=== PATIENT | female | born 1940 | race Caucasian/White ===

== ENCOUNTER 2022-11-02 11:50 | Inpatient (IN) | payer OTHER, MEDICAID ==
[2022-11-02 12:53] LABS: Bilirubin Neg (Negative); Blood, Urine Negative (Negative); Clarity Clear (Clear); Glucose, Urine (Dipstick) Normal (Negative); Ketone, Urine 15 mg/dL (Negative); Leukocyte Negative (Negative); Nitrite Negative (Negative); Protein, Urine (Dipstick) 15 mg/dl (Neg-Trace); Specific Gravity, Urine 1.015 (1.005-1.030); Urobilinogen Normal mg/dL (Less than 2)
[2022-11-02 12:55] LABS: #Eosinphils 0.1 10x3/uL (0.0-0.5); #Monocytes 0.2 10x3/uL (0.0-1.1); #Neutrophils 2.9 10x3/uL (1.5-8.4); %Basophils 0.2 % (0.0-2.0); %Lymphocytes 38.5 % (18.0-47.0); %Monocytes 3.6 % (0.0-10.0); %Neutrophils 56.3 % (40.0-75.0); Hemoglobin 3.6 g/dL (12.0-15.5); Mean Corpuscular HGB CONC 32.4 g/dL (32.0-36.0); Mean Corpuscular Hemoglobin 36.7 pg (27.0-33.0); Mean Corpuscular Volume 113.3 fl (81.6-98.3); Platelet Count 28 10x3/uL (150-450); Red Blood Cell (RBC) Count 0.98 10x6/uL (3.90-5.03); White Blood Cell (WBC) Count 5.2 10x3/uL (3.5-10.5)
[2022-11-02 13:15] LABS: ALT (SGPT) 7 U/L (8-55); AST (SGOT) 18 U/L (5-34); Albumin 3.1 g/dL (3.4-4.8); Alkaline Phosphatase 76 U/L (40-110); Anion Gap 19 mmol/L (10-20); BUN (Urea Nitrogen) 40 mg/dL (9.8-20.1); Bilirubin, Total 0.5 mg/dL (0.2-1.2); Calc. Creatinine Clearance 0 mL/min (70-130); Calcium 8.4 mg/dL (7.8-10.44); Carbon Dioxide 22 mmol/L (23-31); Chloride 109 mmol/L (98-107); Estimated GFR 53; Globulin 2.6 g/dL (2.4-3.5); Glucose 100 mg/dL (83-110); Potassium 4.3 mmol/L (3.5-5.1); Protein, Total 5.7 g/dL (5.8-8.1); Sodium 146 mmol/L (136-145)
[2022-11-02 13:18] LABS: CKMB 2.3 ng/mL (0-6.6)
[2022-11-02 13:28] LABS: Anisocytosis SLIGHT = 6-15 cells (100X) (0-5/hpf); Macrocytosis MODERATE=16-30 cells (100X) (0-5/hpf); Microcytosis SLIGHT = 6-15 cells (100X) (0-5/hpf); Ovalocytes MODERATE= 6-15 cells (100X) (0-1/hpf); Platelet Morphology Comment Appears Decreased
[2022-11-02 13:36] LABS: INR-International Normal Ratio 1.1; PTT 27.6 sec (22.0-33.0); Prothrombin Time 12.2 sec (9.5-12.1)
[2022-11-02 14:17] LABS: SARS-CoV-2 NAA Rapid Test Not Detected (NotDetected)
[2022-11-02 15:26] LABS: Troponin I 0.041 ng/mL (< 0.028)
[2022-11-02 19:32] LABS: Troponin I 0.041 ng/mL (< 0.028)
[2022-11-02 20:22] LABS: #Eosinphils 0.1 10x3/uL (0.0-0.5); #Monocytes 0.2 10x3/uL (0.0-1.1); #Neutrophils 2.6 10x3/uL (1.5-8.4); %Basophils 0.6 % (0.0-2.0); %Eosinophils 2.8 % (0.0-6.0); %Lymphocytes 40.8 % (18.0-47.0); %Neutrophils 52.6 % (40.0-75.0); Mean Corpuscular Hemoglobin 32.5 pg (27.0-33.0); Mean Corpuscular Volume 92.8 fl (81.6-98.3); Mean Platelet Volume 11.5 fl (7.4-10.4); Platelet Count 78 10x3/uL (150-450); RBC Distribution Width 18.1 % (11.5-14.5); Red Blood Cell (RBC) Count 2.77 10x6/uL (3.90-5.03)
[2022-11-02] MEDS ORDERED: Octreotide Acetate 1,250 MCG in Sodium Chloride 0.9% 250 ML 250 ML IVPB SCH (21:00)
[2022-11-02 23:03] VITALS: BMI 34.8
[2022-11-02] MEDS ORDERED: Ipratropium/Albuterol 3 ML NEB NEB PRN (23:08)
[2022-11-02] MEDS ORDERED: Pantoprazole 40 MG VIAL IVP SCH (23:15)
[2022-11-02] MEDS: Sodium Chloride 0.9% 1,000 ML IV SCH (23:34)
[2022-11-03 01:31] LABS: Hemoglobin 8.8 g/dL (12.0-15.5); Magnesium 1.9 mg/dL (1.6-2.6)
[2022-11-03 04:24] LABS: #Eosinphils 0.2 10x3/uL (0.0-0.5); #Monocytes 0.1 10x3/uL (0.0-1.1); #Neutrophils 2.6 10x3/uL (1.5-8.4); %Basophils 0.2 % (0.0-2.0); %Eosinophils 5.3 % (0.0-6.0); %Lymphocytes 31.9 % (18.0-47.0); %Monocytes 1.8 % (0.0-10.0); %Neutrophils 60.3 % (40.0-75.0); Anion Gap 15 mmol/L (10-20); BUN (Urea Nitrogen) 32 mg/dL (9.8-20.1); Calc. Creatinine Clearance 56 mL/min (70-130); Calcium 8.5 mg/dL (7.8-10.44); Carbon Dioxide 22 mmol/L (23-31); Chloride 111 mmol/L (98-107); Estimated GFR 66; Glucose 121 mg/dL (83-110); Hemoglobin 8.2 g/dL (12.0-15.5); Mean Corpuscular HGB CONC 34.6 g/dL (32.0-36.0); Mean Corpuscular Hemoglobin 31.9 pg (27.0-33.0); Mean Corpuscular Volume 92.2 fl (81.6-98.3); Mean Platelet Volume 11.7 fl (7.4-10.4); Platelet Count 71 10x3/uL (150-450); Potassium 3.9 mmol/L (3.5-5.1); RBC Distribution Width 19.7 % (11.5-14.5); Red Blood Cell (RBC) Count 2.57 10x6/uL (3.90-5.03); Sodium 144 mmol/L (136-145); White Blood Cell (WBC) Count 4.4 10x3/uL (3.5-10.5)
[2022-11-03] MEDS ORDERED: FLU VACC QS2022-23(65YR UP)/PF 240 MCG/0.7 ML SYRINGE IM ONE (09:00)
[2022-11-03] MEDS ORDERED: levETIRAcetam in NS 500 MG in Premix Bag 1 BAG IVPB SCH (09:00)
[2022-11-03] MEDS: levETIRAcetam 500 MG/5 ML VIAL SLOW IVP SCH ×2 (10:09→21:53)
[2022-11-03] MEDS: Pantoprazole 40 MG VIAL IVP SCH ×2 (10:09→21:53)
[2022-11-03] MEDS: Sodium Chloride 0.9% 1,000 ML IV SCH (12:27)
[2022-11-03] MEDS: Folic Acid 1 MG TAB PO SCH (13:39)
[2022-11-03] MEDS: Multivitamin W/ Minerals 1 TAB PO SCH (13:39)
[2022-11-04 04:55] LABS: #Eosinphils 0.3 10x3/uL (0.0-0.5); #Neutrophils 2.9 10x3/uL (1.5-8.4); %Basophils 0.4 % (0.0-2.0); %Eosinophils 7.6 % (0.0-6.0); %Lymphocytes 24.9 % (18.0-47.0); %Monocytes 0.9 % (0.0-10.0); %Neutrophils 65.8 % (40.0-75.0); ALT (SGPT) Less than 6 U/L (8-55); AST (SGOT) 15 U/L (5-34); Albumin 2.8 g/dL (3.4-4.8); Alkaline Phosphatase 62 U/L (40-110); Anion Gap 13 mmol/L (10-20); BUN (Urea Nitrogen) 26 mg/dL (9.8-20.1); Bilirubin, Total 0.9 mg/dL (0.2-1.2); Calc. Creatinine Clearance 62 mL/min (70-130); Calcium 8.4 mg/dL (7.8-10.44); Carbon Dioxide 22 mmol/L (23-31); Chloride 111 mmol/L (98-107); Estimated GFR 74; Globulin 2.7 g/dL (2.4-3.5); Glucose 121 mg/dL (83-110); Hemoglobin 8.1 g/dL (12.0-15.5); Mean Corpuscular HGB CONC 34.8 g/dL (32.0-36.0); Mean Corpuscular Hemoglobin 32.5 pg (27.0-33.0); Mean Corpuscular Volume 93.6 fl (81.6-98.3); Mean Platelet Volume 11.9 fl (7.4-10.4); Platelet Count 41 10x3/uL (150-450); Potassium 3.4 mmol/L (3.5-5.1); Protein, Total 5.5 g/dL (5.8-8.1); RBC Distribution Width 19.6 % (11.5-14.5); Red Blood Cell (RBC) Count 2.49 10x6/uL (3.90-5.03); Sodium 143 mmol/L (136-145); White Blood Cell (WBC) Count 4.5 10x3/uL (3.5-10.5)
[2022-11-04] MEDS ORDERED: Potassium Chloride 20 MEQ in Premix Bag 1 BAG IVPB SCH (05:45)
[2022-11-04 05:56] LABS: Magnesium 1.8 mg/dL (1.6-2.6)
[2022-11-04] MEDS: Folic Acid 1 MG TAB PO SCH (09:51)
[2022-11-04] MEDS: Multivitamin W/ Minerals 1 TAB PO SCH (09:52)
[2022-11-04] MEDS: levETIRAcetam 500 MG/5 ML VIAL SLOW IVP SCH (09:52)
[2022-11-04] MEDS: Pantoprazole 40 MG VIAL IVP SCH ×2 (09:53→21:07)
[2022-11-04] MEDS ORDERED: Ketamine 50 MG/ML (10ML VIAL) ONE (15:11)
[2022-11-04] MEDS ORDERED: Midazolam HCl 2 mg/2 ml Vial ONE (15:12)
[2022-11-04] MEDS: DULoxetine 30 MG CAP PO SCH (21:07)
[2022-11-04] MEDS: busPIRone HCl 5 MG TAB PO SCH (21:07)
[2022-11-04] MEDS: levETIRAcetam 500 MG TAB PO SCH (21:08)
[2022-11-04] MEDS: Pramipexole Di-HCl 1 MG TAB PO SCH (21:08)
[2022-11-05] MEDS: Levothyroxine Sodium 125 MCG TAB PO SCH (05:27)
[2022-11-05 05:36] LABS: Mean Corpuscular HGB CONC 33.2 g/dL (32.0-36.0); Mean Corpuscular Hemoglobin 31.7 pg (27.0-33.0); Mean Corpuscular Volume 95.6 fl (81.6-98.3); Platelet Count 27 10x3/uL (150-450); RBC Distribution Width 18.9 % (11.5-14.5); Red Blood Cell (RBC) Count 2.52 10x6/uL (3.90-5.03); White Blood Cell (WBC) Count 4.3 10x3/uL (3.5-10.5)
[2022-11-05 05:41] LABS: MDiff Complete? YES
[2022-11-05 05:48] LABS: ALT (SGPT) 6 U/L (8-55); AST (SGOT) 12 U/L (5-34); Albumin 2.7 g/dL (3.4-4.8); Alkaline Phosphatase 61 U/L (40-110); Anion Gap 13 mmol/L (10-20); BUN (Urea Nitrogen) 24 mg/dL (9.8-20.1); Bilirubin, Total 0.7 mg/dL (0.2-1.2); Calc. Creatinine Clearance 68 mL/min (70-130); Calcium 8.7 mg/dL (7.8-10.44); Carbon Dioxide 25 mmol/L (23-31); Chloride 112 mmol/L (98-107); Estimated GFR 83; Globulin 2.5 g/dL (2.4-3.5); Glucose 108 mg/dL (83-110); Magnesium 1.8 mg/dL (1.6-2.6); Potassium 3.7 mmol/L (3.5-5.1); Protein, Total 5.2 g/dL (5.8-8.1); Sodium 146 mmol/L (136-145)
[2022-11-05 05:57] LABS: Eosinophils 6 % (0-10); Lymphocytes 32 % (21-51); Monocytes 1 % (0-10); Neutrophil 61 % (42-75)
[2022-11-05 05:59] LABS: Platelet Morphology Comment Appears Decreased
[2022-11-05 06:00] LABS: Anisocytosis SLIGHT = 6-15 cells (100X) (0-5/hpf); Hypochromia SLIGHT = 6-15 cells (100X) (0-5/hpf); Microcytosis SLIGHT = 6-15 cells (100X) (0-5/hpf)
[2022-11-05] MEDS: Pramipexole Di-HCl 1 MG TAB PO SCH ×3 (08:30→21:21)
[2022-11-05] MEDS: busPIRone HCl 5 MG TAB PO SCH ×2 (08:30→21:20)
[2022-11-05] MEDS: Pantoprazole 40 MG VIAL IVP SCH ×2 (08:30→21:21)
[2022-11-05] MEDS: Folic Acid 1 MG TAB PO SCH (08:30)
[2022-11-05] MEDS: Multivitamin W/ Minerals 1 TAB PO SCH (08:31)
[2022-11-05] MEDS: levETIRAcetam 500 MG TAB PO SCH ×2 (08:31→21:20)
[2022-11-05] MEDS ORDERED: Nystatin 500,000 UNITS/5 ML UDCUP SSW SCH (12:00)
[2022-11-05] MEDS: DULoxetine 30 MG CAP PO SCH (21:20)
[2022-11-05] MEDS: [UNRECOGNIZED DRUG - OTHER] SSW SCH (21:21)
[2022-11-05] MEDS: NYSTATIN SSW SCH (21:21)
[2022-11-06 04:27] LABS: Bilirubin Neg (Negative); Blood, Urine 250 (Negative); Clarity Cloudy (Clear); Glucose, Urine (Dipstick) Normal (Negative); Ketone, Urine Negative (Negative); Leukocyte 500 (Negative); Nitrite Positive (Negative); Protein, Urine (Dipstick) 30 mg/dl (Neg-Trace); Specific Gravity, Urine 1.015 (1.005-1.030); Urobilinogen Normal mg/dL (Less than 2)
[2022-11-06 04:37] LABS: Bacteria/HPF 4+ HPF (None Seen); Squamous Epithelial 0-3 HPF (0-3); Transitional Epithelial 0-3 HPF (None Seen); Triple Phosphate Crystal 1+ HPF (None Seen); WBC/HPF 21-50 HPF (0-3)
[2022-11-06 04:39] LABS: Hemoglobin 8.4 g/dL (12.0-15.5); Mean Corpuscular HGB CONC 33.9 g/dL (32.0-36.0); Mean Corpuscular Hemoglobin 32.1 pg (27.0-33.0); Mean Corpuscular Volume 94.7 fl (81.6-98.3); Platelet Count 16 10x3/uL (150-450); Red Blood Cell (RBC) Count 2.62 10x6/uL (3.90-5.03); White Blood Cell (WBC) Count 1.2 10x3/uL (3.5-10.5)
[2022-11-06 04:40] LABS: Anion Gap 13 mmol/L (10-20); BUN (Urea Nitrogen) 22 mg/dL (9.8-20.1); Calc. Creatinine Clearance 66 mL/min (70-130); Calcium 8.6 mg/dL (7.8-10.44); Carbon Dioxide 25 mmol/L (23-31); Chloride 110 mmol/L (98-107); Estimated GFR 79; Glucose 106 mg/dL (83-110); Magnesium 1.6 mg/dL (1.6-2.6); Potassium 3.7 mmol/L (3.5-5.1); Sodium 144 mmol/L (136-145)
[2022-11-06] MEDS: Levothyroxine Sodium 125 MCG TAB PO SCH (05:24)
[2022-11-06 06:06] LABS: MDiff Complete? YES
[2022-11-06 06:11] LABS: Eosinophils 14 % (0-10); Lymphocytes 32 % (21-51); Monocytes 4 % (0-10); Neutrophil 50 % (42-75)
[2022-11-06 06:12] LABS: Anisocytosis MODERATE=16-30 cells (100X) (0-5/hpf); Elliptocytes SLIGHT = 2-5 cells (100X) (0-1/hpf); Microcytosis SLIGHT = 6-15 cells (100X) (0-5/hpf); Polychromasia SLIGHT = 2-3 cells (100X) (0-2/hpf)
[2022-11-06 06:26] LABS: Platelet Morphology Comment Appears Decreased
[2022-11-06] MEDS: Multivitamin W/ Minerals 1 TAB PO SCH (10:21)
[2022-11-06] MEDS: Folic Acid 1 MG TAB PO SCH (10:21)
[2022-11-06] MEDS: busPIRone HCl 5 MG TAB PO SCH ×2 (10:21→20:23)
[2022-11-06] MEDS: levETIRAcetam 500 MG TAB PO SCH ×2 (10:21→20:23)
[2022-11-06] MEDS: Pramipexole Di-HCl 1 MG TAB PO SCH ×3 (10:29→20:23)
[2022-11-06] MEDS: Pantoprazole 40 MG VIAL IVP SCH ×2 (10:29→20:23)
[2022-11-06] MEDS: NYSTATIN SSW SCH ×2 (10:30→20:23)
[2022-11-06] MEDS: [UNRECOGNIZED DRUG - OTHER] SSW SCH ×2 (10:30→20:23)
[2022-11-06] MEDS ORDERED: Sodium Chloride 0.9% 1,000 ML IV SCH (15:00)
[2022-11-06] MEDS ORDERED: VANCOMYCIN 1.25 GM/250 ML BAG 1.25 GM in Premix Bag 1 BAG IVPB SCH (16:00)
[2022-11-06] MEDS ORDERED: Levofloxacin 500 mg/D5W 100 ml Premix Bag ONE (17:46)
[2022-11-06] MEDS ORDERED: VANCOMYCIN 1.25 GM/250 ML BAG ONE (17:46)
[2022-11-06] MEDS: Sodium Chloride 0.9% 1,000 ML IV SCH (17:50)
[2022-11-06] MEDS: DULoxetine 30 MG CAP PO SCH (20:23)
[2022-11-07] MEDS: Acetaminophen 500 MG TAB PO PRN ×2 (00:51→21:03)
[2022-11-07 05:34] LABS: Anion Gap 12 mmol/L (10-20); BUN (Urea Nitrogen) 23 mg/dL (9.8-20.1); Calc. Creatinine Clearance 66 mL/min (70-130); Calcium 8.2 mg/dL (7.8-10.44); Carbon Dioxide 23 mmol/L (23-31); Chloride 112 mmol/L (98-107); Estimated GFR 80; Glucose 103 mg/dL (83-110); Potassium 3.4 mmol/L (3.5-5.1); Sodium 144 mmol/L (136-145)
[2022-11-07] MEDS: Levothyroxine Sodium 125 MCG TAB PO SCH (06:40)
[2022-11-07] MEDS: Sodium Chloride 0.9% 1,000 ML IV SCH (06:40)
[2022-11-07 08:37] LABS: Hemoglobin 7.3 g/dL (12.0-15.5); Mean Corpuscular HGB CONC 34.3 g/dL (32.0-36.0); Mean Corpuscular Hemoglobin 32.2 pg (27.0-33.0); Mean Corpuscular Volume 93.8 fl (81.6-98.3); Platelet Count 7 10x3/uL (150-450); RBC Distribution Width 17.9 % (11.5-14.5); Red Blood Cell (RBC) Count 2.27 10x6/uL (3.90-5.03); White Blood Cell (WBC) Count 2.2 10x3/uL (3.5-10.5)
[2022-11-07 08:39] LABS: MDiff Complete? YES
[2022-11-07] MEDS ORDERED: Furosemide 40 MG/4 ML VIAL SLOW IVP SCH (10:00)
[2022-11-07] MEDS ORDERED: DOPamine 400 MG/D5W 250 ML 250 ML IVPB SCH (10:15)
[2022-11-07 10:20] LABS: Band 3 % (5-11); Eosinophils 1 % (0-10); Neutrophil 35 % (42-75)
[2022-11-07 10:34] LABS: Lymphocytes 52 % (21-51); Monocytes 9 % (0-10)
[2022-11-07] MEDS: NYSTATIN SSW SCH ×2 (10:34→20:36)
[2022-11-07] MEDS: [UNRECOGNIZED DRUG - OTHER] SSW SCH ×2 (10:34→20:36)
[2022-11-07 10:35] LABS: Platelet Morphology Comment Appears Decreased
[2022-11-07] MEDS: levETIRAcetam 500 MG TAB PO SCH ×2 (10:41→20:13)
[2022-11-07] MEDS: Multivitamin W/ Minerals 1 TAB PO SCH (10:41)
[2022-11-07] MEDS: Pantoprazole 40 MG VIAL IVP SCH ×2 (10:41→20:13)
[2022-11-07] MEDS: Folic Acid 1 MG TAB PO SCH (10:41)
[2022-11-07] MEDS: busPIRone HCl 5 MG TAB PO SCH ×2 (10:41→20:13)
[2022-11-07] MEDS: Vancomycin HCl 1 GM in Sodium Chloride 0.9% 250 ML 250 ML IVPB SCH (12:25)
[2022-11-07] MEDS: Pramipexole Di-HCl 1 MG TAB PO SCH (12:26)
[2022-11-07] MEDS ORDERED: Sodium Chloride 0.9% 500 ML IV SCH (12:30)
[2022-11-07] MEDS ORDERED: NOREPINEPHRINE 8 MG/250 ML-D5W 250 ML IVPB SCH (13:35)
[2022-11-07 14:47] LABS: D-Dimer Test 2.94 mg/L FEU (0.19-0.50); INR-International Normal Ratio 1.1; PTT 27.1 sec (22.0-33.0); Prothrombin Time 11.4 sec (9.5-12.1)
[2022-11-07] MEDS: Dextrose 5% in Water 1,000 ML IV SCH (15:36)
[2022-11-07] MEDS ORDERED: Furosemide 20 MG/2 ML VIAL SLOW IVP SCH (19:00)
[2022-11-07] MEDS: DULoxetine 30 MG CAP PO SCH (20:13)
[2022-11-07] MEDS: Potassium Chloride 20 MEQ TAB PO SCH ×2 (23:12→23:29)
[2022-11-07] MEDS ORDERED: Potassium Bicarbonate/Cit Ac 20 MEQ TAB PO SCH (23:45)
[2022-11-08] MEDS ORDERED: Digoxin 0.5 MG/2 ML AMP SLOW IVP SCH (01:30)
[2022-11-08 01:50] LABS: Hemoglobin 7.7 g/dL (12.0-15.5); Mean Corpuscular HGB CONC 34.1 g/dL (32.0-36.0); Mean Corpuscular Volume 93.8 fl (81.6-98.3); Platelet Count 5 10x3/uL (150-450); RBC Distribution Width 17.8 % (11.5-14.5); Red Blood Cell (RBC) Count 2.41 10x6/uL (3.90-5.03); White Blood Cell (WBC) Count 2.6 10x3/uL (3.5-10.5)
[2022-11-08] MEDS ORDERED: Albumin 25% 25 GM/100 ML BOT IVPB SCH (02:00)
[2022-11-08 02:01] LABS: ALT (SGPT) 8 U/L (8-55); AST (SGOT) 18 U/L (5-34); Albumin 2.6 g/dL (3.4-4.8); Alkaline Phosphatase 49 U/L (40-110); Anion Gap 11 mmol/L (10-20); BUN (Urea Nitrogen) 21 mg/dL (9.8-20.1); Bilirubin, Total 0.5 mg/dL (0.2-1.2); Calc. Creatinine Clearance 65 mL/min (70-130); Calcium 8.1 mg/dL (7.8-10.44); Carbon Dioxide 26 mmol/L (23-31); Chloride 109 mmol/L (98-107); Estimated GFR 78; Globulin 2.5 g/dL (2.4-3.5); Glucose 115 mg/dL (83-110); Potassium 3.2 mmol/L (3.5-5.1); Protein, Total 5.1 g/dL (5.8-8.1); Sodium 143 mmol/L (136-145)
[2022-11-08 02:14] LABS: MDiff Complete? YES
[2022-11-08 02:27] LABS: Band 12 % (5-11); Eosinophils 2 % (0-10); Lymphocytes 40 % (21-51); Monocytes 5 % (0-10); Neutrophil 41 % (42-75)
[2022-11-08 02:31] LABS: Anisocytosis MODERATE=16-30 cells (100X) (0-5/hpf); Elliptocytes SLIGHT = 2-5 cells (100X) (0-1/hpf); Microcytosis SLIGHT = 6-15 cells (100X) (0-5/hpf); Polychromasia SLIGHT = 2-3 cells (100X) (0-2/hpf); Schistocytes SLIGHT = 2-5 cells (100X) (0-1/hpf)
[2022-11-08 02:32] LABS: Platelet Morphology Comment Appears Decreased; Tear Drops SLIGHT = 2-5 cells (100X) (0-1/hpf)
[2022-11-08] MEDS: Potassium Chloride 20 MEQ in Premix Bag 1 BAG IVPB SCH ×3 (03:21→10:05)
[2022-11-08] MEDS ORDERED: Ketorolac Tromethamine 30 MG/ML VIAL IVP SCH (03:30)
[2022-11-08] MEDS ORDERED: Digoxin 0.125 MG TAB PO SCH (04:45)
[2022-11-08] MEDS: Vancomycin HCl 1 GM in Sodium Chloride 0.9% 250 ML 250 ML IVPB SCH ×2 (04:52→22:50)
[2022-11-08] MEDS: Levothyroxine Sodium 125 MCG TAB PO SCH (06:01)
[2022-11-08] MEDS: Acetaminophen 500 MG TAB PO PRN (07:45)
[2022-11-08] MEDS: Pantoprazole 40 MG VIAL IVP SCH ×2 (07:45→20:46)
[2022-11-08] MEDS: busPIRone HCl 5 MG TAB PO SCH ×2 (07:46→20:46)
[2022-11-08] MEDS: Folic Acid 1 MG TAB PO SCH (07:46)
[2022-11-08] MEDS: Multivitamin W/ Minerals 1 TAB PO SCH (07:46)
[2022-11-08] MEDS: levETIRAcetam 500 MG TAB PO SCH ×2 (07:46→20:46)
[2022-11-08 08:09] LABS: Hemoglobin 6.6 g/dL (12.0-15.5); Mean Corpuscular HGB CONC 33.8 g/dL (32.0-36.0); Mean Corpuscular Hemoglobin 32.7 pg (27.0-33.0); Mean Corpuscular Volume 96.5 fl (81.6-98.3); Mean Platelet Volume 11.7 fl (7.4-10.4); Platelet Count 48 10x3/uL (150-450); RBC Distribution Width 17.8 % (11.5-14.5); Red Blood Cell (RBC) Count 2.02 10x6/uL (3.90-5.03); White Blood Cell (WBC) Count 2.3 10x3/uL (3.5-10.5)
[2022-11-08 08:10] LABS: MDiff Complete? YES
[2022-11-08 08:35] LABS: Anion Gap 15 mmol/L (10-20); BUN (Urea Nitrogen) 20 mg/dL (9.8-20.1); Calc. Creatinine Clearance 62 mL/min (70-130); Calcium 8.1 mg/dL (7.8-10.44); Carbon Dioxide 21 mmol/L (23-31); Chloride 110 mmol/L (98-107); Estimated GFR 74; Glucose 85 mg/dL (83-110); Magnesium 1.8 mg/dL (1.6-2.6); Sodium 142 mmol/L (136-145)
[2022-11-08] MEDS: Digoxin 0.125 MG TAB PO SCH (09:49)
[2022-11-08] MEDS: NYSTATIN SSW SCH ×2 (09:51→21:04)
[2022-11-08] MEDS: [UNRECOGNIZED DRUG - OTHER] SSW SCH ×2 (09:51→21:04)
[2022-11-08 10:43] LABS: Eosinophils 8 % (0-10); Lymphocytes 50 % (21-51); Monocytes 9 % (0-10); Neutrophil 32 % (42-75)
[2022-11-08 10:44] LABS: Platelet Morphology Comment Appears Decreased
[2022-11-08] MEDS: Dextrose 5% in Water 1,000 ML IV SCH (10:54)
[2022-11-08] MEDS: HYDROcodone/Acetaminophen 5/325 mg Tablet PO PRN ×2 (11:52→20:46)
[2022-11-08] MEDS: DULoxetine 30 MG CAP PO SCH (20:47)
[2022-11-08 21:35] LABS: Vancomycin, Trough 13.9 ug/mL
[2022-11-09] MEDS: HYDROcodone/Acetaminophen 5/325 mg Tablet PO PRN ×4 (03:23→20:30)
[2022-11-09] MEDS: Levothyroxine Sodium 125 MCG TAB PO SCH (06:49)
[2022-11-09] MEDS: Pantoprazole 40 MG VIAL IVP SCH ×2 (09:22→20:29)
[2022-11-09] MEDS: Multivitamin W/ Minerals 1 TAB PO SCH (09:22)
[2022-11-09] MEDS: levETIRAcetam 500 MG TAB PO SCH ×2 (09:22→20:29)
[2022-11-09] MEDS: Digoxin 0.125 MG TAB PO SCH (09:23)
[2022-11-09] MEDS: busPIRone HCl 5 MG TAB PO SCH ×2 (09:24→20:28)
[2022-11-09] MEDS: Folic Acid 1 MG TAB PO SCH (09:25)
[2022-11-09] MEDS: Dextrose 5% in Water 1,000 ML IV SCH (09:27)
[2022-11-09 09:33] LABS: Hemoglobin 6.7 g/dL (12.0-15.5); Mean Corpuscular HGB CONC 33.7 g/dL (32.0-36.0); Mean Corpuscular Hemoglobin 32.4 pg (27.0-33.0); Mean Corpuscular Volume 96.1 fl (81.6-98.3); Platelet Count 35 10x3/uL (150-450); RBC Distribution Width 17.8 % (11.5-14.5); Red Blood Cell (RBC) Count 2.07 10x6/uL (3.90-5.03)
[2022-11-09 09:36] LABS: Anion Gap 10 mmol/L (10-20); BUN (Urea Nitrogen) 21 mg/dL (9.8-20.1); Calc. Creatinine Clearance 59 mL/min (70-130); Calcium 8.2 mg/dL (7.8-10.44); Carbon Dioxide 25 mmol/L (23-31); Chloride 106 mmol/L (98-107); Estimated GFR 69; Glucose 85 mg/dL (83-110); Potassium 3.6 mmol/L (3.5-5.1); Sodium 137 mmol/L (136-145)
[2022-11-09] MEDS: NYSTATIN SSW SCH ×2 (12:46→20:45)
[2022-11-09] MEDS: [UNRECOGNIZED DRUG - OTHER] SSW SCH ×2 (12:46→20:45)
[2022-11-09] MEDS: Vancomycin HCl 1 GM in Sodium Chloride 0.9% 250 ML 250 ML IVPB SCH (16:30)
[2022-11-09] MEDS ORDERED: Levofloxacin 500 mg/D5W 100 ml Premix Bag ONE (16:31)
[2022-11-09] MEDS: DULoxetine 30 MG CAP PO SCH (23:41)
[2022-11-10 04:53] LABS: Mean Corpuscular HGB CONC 34.3 g/dL (32.0-36.0); Mean Corpuscular Hemoglobin 32.7 pg (27.0-33.0); Mean Corpuscular Volume 95.3 fl (81.6-98.3); Mean Platelet Volume 12.6 fl (7.4-10.4); Platelet Count 26 10x3/uL (150-450); RBC Distribution Width 17.8 % (11.5-14.5); Red Blood Cell (RBC) Count 2.14 10x6/uL (3.90-5.03)
[2022-11-10 04:56] LABS: Anion Gap 13 mmol/L (10-20); BUN (Urea Nitrogen) 21 mg/dL (9.8-20.1); Calc. Creatinine Clearance 61 mL/min (70-130); Calcium 8.2 mg/dL (7.8-10.44); Carbon Dioxide 22 mmol/L (23-31); Chloride 109 mmol/L (98-107); Estimated GFR 72; Glucose 76 mg/dL (83-110); Potassium 4.5 mmol/L (3.5-5.1); Sodium 139 mmol/L (136-145)
[2022-11-10 05:06] LABS: MDiff Complete? YES
[2022-11-10 05:11] LABS: Band 13 % (5-11); Eosinophils 16 % (0-10); Lymphocytes 23 % (21-51); Monocytes 14 % (0-10); Neutrophil 33 % (42-75)
[2022-11-10 05:12] LABS: Platelet Morphology Comment Appears Decreased; RBC Morphology Normal
[2022-11-10] MEDS: HYDROcodone/Acetaminophen 5/325 mg Tablet PO PRN ×2 (05:12→08:45)
[2022-11-10] MEDS: Pantoprazole 40 MG VIAL IVP SCH ×2 (08:44→20:16)
[2022-11-10] MEDS: Multivitamin W/ Minerals 1 TAB PO SCH (08:44)
[2022-11-10] MEDS: Folic Acid 1 MG TAB PO SCH (08:44)
[2022-11-10] MEDS: Digoxin 0.125 MG TAB PO SCH (08:44)
[2022-11-10] MEDS: levETIRAcetam 500 MG TAB PO SCH ×2 (08:44→20:16)
[2022-11-10] MEDS: busPIRone HCl 5 MG TAB PO SCH ×2 (08:45→21:11)
[2022-11-10] MEDS: [UNRECOGNIZED DRUG - OTHER] SSW SCH ×2 (08:46→21:12)
[2022-11-10] MEDS: NYSTATIN SSW SCH ×2 (08:46→21:12)
[2022-11-10 17:00] VITALS: BP 128/99; TEMP 98.3
[2022-11-10] MEDS: DULoxetine 30 MG CAP PO SCH (20:16)
== END 2022-11-10 21:30 | disposition short-term general hospital (02) | DRG 380 ==
LOC: CSHERS 11:50 → CSHTELE 14:02 → CSHICU 11-07 12:48 → CSHTELE 11-10 17:30
PROVIDERS: ADMIT Family Medicine; ATTEND Internal Medicine
PROC: 30233N1 Transfusion of Nonautologous Red Blood Cells into Peripheral Vein, Percutaneous Approach (ICD-10-PCS; 2022-11-02)
PROC: 6A551Z2 Pheresis of Platelets, Multiple (ICD-10-PCS; 2022-11-02)
PROC: 0DJ08ZZ Inspection of Upper Intestinal Tract, Via Natural or Artificial Opening Endoscopic (ICD-10-PCS; principal; 2022-11-04)
DX: K22.11 Ulcer of esophagus with bleeding (principal); A41.9 Sepsis, unspecified organism; J69.0 Pneumonitis due to inhalation of food and vomit; J96.21 Acute and chronic respiratory failure with hypoxia; J18.9 Pneumonia, unspecified organism; D62 Acute posthemorrhagic anemia; I50.42 Chronic combined systolic (congestive) and diastolic (congestive) heart failure; I48.20 Chronic atrial fibrillation, unspecified; N39.0 Urinary tract infection, site not specified; E87.0 Hyperosmolality and hypernatremia; D61.818 Other pancytopenia; E87.20 Acidosis, unspecified; I42.9 Cardiomyopathy, unspecified; D46.9 Myelodysplastic syndrome, unspecified; J44.9 Chronic obstructive pulmonary disease, unspecified; Z77.22 Contact with and (suspected) exposure to environmental tobacco smoke (acute) (chronic); M06.9 Rheumatoid arthritis, unspecified; D75.89 Other specified diseases of blood and blood-forming organs; K44.9 Diaphragmatic hernia without obstruction or gangrene; E03.9 Hypothyroidism, unspecified; G40.909 Epilepsy, unspecified, not intractable, without status epilepticus; I25.10 Atherosclerotic heart disease of native coronary artery without angina pectoris; R13.10 Dysphagia, unspecified; K21.00 Gastro-esophageal reflux disease with esophagitis, without bleeding; E87.6 Hypokalemia; I48.0 Paroxysmal atrial fibrillation; D63.1 Anemia in chronic kidney disease; Z88.8 Allergy status to other drugs, medicaments and biological substances; Z79.01 Long term (current) use of anticoagulants; Z88.1 Allergy status to other antibiotic agents; Z88.0 Allergy status to penicillin; Z79.899 Other long term (current) drug therapy; Z79.890 Hormone replacement therapy; Z99.81 Dependence on supplemental oxygen; Z86.73 Personal history of transient ischemic attack (TIA), and cerebral infarction without residual deficits; Z90.49 Acquired absence of other specified parts of digestive tract; Z90.89 Acquired absence of other organs; Z90.710 Acquired absence of both cervix and uterus; Z80.1 Family history of malignant neoplasm of trachea, bronchus and lung; Z88.6 Allergy status to analgesic agent; Z82.49 Family history of ischemic heart disease and other diseases of the circulatory system; Z20.822 Contact with and (suspected) exposure to COVID-19
CPT/HCPCS: 36415; 36416; 36430; 71045; 80048; 80053; 80202; 81001; 81003; 82274; 82553; 82607; 83605; 83735; 84443; 84484; 85014; 85018; 85025; 85027; 85049; 85300; 85362; 85379; 85384; 85610; 85730; 86850; 86900; 86901; 87040; 87086; 88184; 93005; 93010; 93306; 94760; 96374; C9113; J1160; J1265; J1885; J1940; J1953; J1956; J2250; J3370; J3475; J3480; J7030; J7050; J7070; P9016; P9035; P9047; U0002